=== PATIENT | female | born 1960 | race Two or more races ===

== ENCOUNTER → 2017-11-09 14:30 | Outpatient (CLI) | payer OTHER ==
[~2017-11-09] VITALS: Ht 152.4 cm; Wt 65.3 kg
[~2017-11-09 14:30] MED LIST: BACTROBAN OINT22 GM TP; FLONASE16 GM NS; GILTUSS TR TAB1 EACH PO; KETO10TA2 PO; MEDROLPACK PO; TESSALON PERLE100 MG PO; TORADOL60 MG IM; VOLTAREM 75 MG PO; ZANTAC300 MG PO; ZYRTEC10 MG PO
== END | disposition home or self-care (01) ==
LOC: PPHC 14:30
DX: M54.5 Low back pain (principal)

== ENCOUNTER 2017-11-13 07:37 | Outpatient (CLI) | payer OTHER | END 2017-11-13 07:47 | disposition home or self-care (01) | LOC: LAB 07:37 | DX: Z00.00 Encounter for general adult medical examination without abnormal findings (principal) ==

== ENCOUNTER 2017-12-14 14:26 | Outpatient (CLI) | payer OTHER | END 2017-12-14 14:34 | disposition home or self-care (01) | LOC: RAD 14:26 | DX: M54.5 Low back pain (principal); M25.569 Pain in unspecified knee ==

== ENCOUNTER → 2017-12-14 | Outpatient (CLI) | payer OTHER ==
[~2017-12-14] VITALS: Ht 152.4 cm; Wt 68.0 kg
== END | disposition home or self-care (01) ==
LOC: PPHC 13:42
DX: M54.5 Low back pain (principal)

== ENCOUNTER → 2017-12-20 | Emergency (ER) | payer OTHER ==
[~2017-12-20] VITALS: Ht 165.1 cm; Wt 68.0 kg
== END | disposition home or self-care (01) ==
LOC: ER 14:00
DX: S93.402A Sprain of unspecified ligament of left ankle, initial encounter (principal); X50.9XXA Other and unspecified overexertion or strenuous movements or postures, initial encounter; Y93.89 Activity, other specified; Y92.69 Other specified industrial and construction area as the place of occurrence of the external cause; Y99.8 Other external cause status

== ENCOUNTER 2017-12-25 11:59 | Emergency (ER) | payer OTHER ==
[~2017-12-25] VITALS: Ht 165.1 cm; Wt 67.6 kg
[2017-12-25] MEDS ORDERED: KETO10TA2 PO (13:37)
[2017-12-25] MEDS ORDERED: CYCLOBENZAPRINE10 MG PO (13:37)
== END 2017-12-25 13:50 | disposition home or self-care (01) ==
LOC: ER 11:59
DX: M25.562 Pain in left knee (principal); G89.11 Acute pain due to trauma; S80.02XS Contusion of left knee, sequela; X50.3XXS Overexertion from repetitive movements, sequela

== ENCOUNTER 2018-05-08 14:35 | Outpatient (CLI) | payer OTHER ==
[~2018-05-08 14:35] MED LIST changes: +CYCLOBENZAPRINE10 MG PO
== END 2018-05-08 14:46 | disposition home or self-care (01) ==
LOC: RAD 14:35
DX: M79.672 Pain in left foot (principal)

== ENCOUNTER 2018-05-24 05:59 | Day surgery (SDC) | payer OTHER ==
[2018-05-24] MEDS ORDERED: ALEVE220 M1 PO (15:58)
[2018-05-24] MEDS ORDERED: ULTRACET PO (15:58)
[2018-05-24] MEDS ORDERED: DUI500 PO (15:58)
== END 2018-05-24 18:10 | disposition home or self-care (01) ==
LOC: CIR.AMB 05:59
DX: S83.211A Bucket-handle tear of medial meniscus, current injury, right knee, initial encounter (principal)

== ENCOUNTER → 2018-08-31 06:41 | Outpatient (CLI) | payer OTHER ==
[~2018-08-31 06:41] MED LIST changes: +ALEVE220 M1 PO; +DUI500 PO; +ULTRACET PO
== END | disposition home or self-care (01) ==
LOC: LAB 06:41
DX: R94.6 Abnormal results of thyroid function studies (principal)

== ENCOUNTER 2018-09-21 14:11 | Outpatient (CLI) | payer OTHER | END 2018-09-21 14:16 | disposition home or self-care (01) | LOC: NUCLEAR 14:11 → TOM 14:11 → NUCLEAR 14:16 | DX: G45.8 Other transient cerebral ischemic attacks and related syndromes (principal) ==

== ENCOUNTER 2018-09-25 12:58 | Outpatient (CLI) | payer OTHER | END 2018-09-25 13:06 | disposition home or self-care (01) | LOC: LAB 12:58 | DX: J01.80 Other acute sinusitis (principal) ==

== ENCOUNTER 2018-10-02 15:25 | Outpatient (CLI) | payer OTHER | END 2018-10-02 15:28 | disposition home or self-care (01) | LOC: RAD 15:25 | DX: R07.89 Other chest pain (principal) ==

== ENCOUNTER 2018-10-10 10:11 | Outpatient (CLI) | payer OTHER | END 2018-10-10 11:02 | disposition home or self-care (01) | LOC: NUCLEAR 10:11 | DX: G45.9 Transient cerebral ischemic attack, unspecified (principal); R55 Syncope and collapse ==

== ENCOUNTER 2018-11-21 12:07 | Outpatient (CLI) | payer OTHER | END 2018-11-21 12:37 | disposition home or self-care (01) | LOC: LAB 12:07 | DX: J11.1 Influenza due to unidentified influenza virus with other respiratory manifestations (principal); J20.0 Acute bronchitis due to Mycoplasma pneumoniae ==

== ENCOUNTER 2018-11-30 14:27 | Outpatient (CLI) | payer OTHER | END 2018-11-30 14:34 | disposition home or self-care (01) | LOC: RAD 14:27 | DX: R05 Cough (principal); M54.5 Low back pain ==

== ENCOUNTER 2018-12-04 06:33 | Outpatient (CLI) | payer OTHER | END 2018-12-04 06:41 | disposition home or self-care (01) | LOC: LAB 06:33 | DX: D64.89 Other specified anemias (principal); E78.49 Other hyperlipidemia; R10.9 Unspecified abdominal pain ==

== ENCOUNTER 2018-12-04 10:16 | Outpatient (CLI) | payer OTHER | END 2018-12-04 11:00 | disposition home or self-care (01) | LOC: NUCLEAR 10:16 | DX: G45.9 Transient cerebral ischemic attack, unspecified (principal); I10 Essential (primary) hypertension ==

== ENCOUNTER 2019-02-08 14:25 | Outpatient (CLI) | payer OTHER | END 2019-02-08 15:10 | disposition home or self-care (01) | LOC: RAD 14:25 | DX: M54.2 Cervicalgia (principal); M25.511 Pain in right shoulder ==

== ENCOUNTER 2019-02-21 11:00 | Outpatient (CLI) | payer OTHER ==
[2019-02-27] MEDS ORDERED: KETO10TA2 PO (13:45)
[2019-02-27] MEDS ORDERED: CYCLOBENZAPRINE10 MG PO (13:46)
== END 2019-02-21 11:07 | disposition home or self-care (01) ==
LOC: RAD 11:00
DX: M16.12 Unilateral primary osteoarthritis, left hip (principal)

== ENCOUNTER 2019-03-05 13:25 | Outpatient (CLI) | payer OTHER | END 2019-03-05 13:38 | disposition home or self-care (01) | LOC: SONOGRAMA 13:25 → MAMO-SONO 13:45 | DX: M75.31 Calcific tendinitis of right shoulder (principal) ==

== ENCOUNTER → 2019-06-17 10:34 | Outpatient (CLI) | payer OTHER | END | disposition home or self-care (01) | LOC: LAB 10:34 | DX: I10 Essential (primary) hypertension (principal); E03.8 Other specified hypothyroidism; R80.8 Other proteinuria ==

== ENCOUNTER 2019-12-29 08:41 | Emergency (ER) | payer OTHER ==
[~2019-12-29] VITALS: Ht 165.1 cm; Wt 68.9 kg
== END 2019-12-29 10:21 | disposition home or self-care (01) ==
LOC: ER 08:41
DX: S43.492A Other sprain of left shoulder joint, initial encounter (principal); X50.0XXA Overexertion from strenuous movement or load, initial encounter; Y93.89 Activity, other specified; Y92.89 Other specified places as the place of occurrence of the external cause; Y99.8 Other external cause status

== ENCOUNTER 2020-03-11 11:30 | Outpatient (CLI) | payer OTHER | END 2020-03-11 11:31 | disposition home or self-care (01) | LOC: RAD 11:30 | DX: M25.522 Pain in left elbow (principal) ==

== ENCOUNTER 2020-05-05 07:22 | Outpatient (CLI) | payer OTHER ==
[~2020-05-05 07:22] MED LIST changes: +DICLOFENAC POTA50 MG PO; +NORFLEX100MG PO
== END 2020-05-05 08:44 | disposition home or self-care (01) ==
LOC: MRI 07:22
PROVIDERS: ATTEND Physical Medicine & Rehabilitation
DX: M54.2 Cervicalgia (principal)
CPT/HCPCS: 72141

== ENCOUNTER 2020-07-06 06:21 | Outpatient (CLI) | payer OTHER ==
[~2020-07-06 06:21] MED LIST changes: +EC-NAPROSYN500 MG PO; +ZANAFLEX2 MG PO
== END 2020-07-06 06:24 | disposition home or self-care (01) ==
LOC: LAB 06:21
PROVIDERS: ATTEND Internal Medicine
DX: D64.89 Other specified anemias (principal); R10.84 Generalized abdominal pain; E78.49 Other hyperlipidemia; R07.89 Other chest pain

== ENCOUNTER 2020-07-14 09:52 | Emergency (ER) | payer OTHER ==
[~2020-07-14] VITALS: Ht 165.1 cm; Wt 68.0 kg
[2020-07-14] MEDS ORDERED: SULINDAC150 MG (10:03)
[2020-07-14] MEDS ORDERED: KETO10TA2 PO (14:10)
[2020-07-14] MEDS ORDERED: ORPHENADRINE C100 MG PO (14:10)
== END 2020-07-14 14:16 | disposition home or self-care (01) ==
LOC: ER 09:52
DX: M50.31 Other cervical disc degeneration, high cervical region (principal); M43.12 Spondylolisthesis, cervical region

== ENCOUNTER 2020-07-24 18:10 | Outpatient (CLI) | payer OTHER ==
[~2020-07-24 18:10] MED LIST changes: +ORPHENADRINE C100 MG PO; +SULINDAC150 MG
== END 2020-07-24 18:11 | disposition home or self-care (01) ==
LOC: PPH VACUNA 18:10
DX: Z23 Encounter for immunization (principal)

== ENCOUNTER 2020-08-03 06:36 | Outpatient (CLI) | payer OTHER | END 2020-08-03 15:00 | disposition home or self-care (01) | LOC: LAB 06:36 | PROVIDERS: ATTEND Obstetrics & Gynecology | DX: E03.8 Other specified hypothyroidism (principal); I10 Essential (primary) hypertension; Z00.00 Encounter for general adult medical examination without abnormal findings; E78.00 Pure hypercholesterolemia, unspecified; N39.0 Urinary tract infection, site not specified; Z11.4 Encounter for screening for human immunodeficiency virus [HIV]; Z12.11 Encounter for screening for malignant neoplasm of colon; E55.9 Vitamin D deficiency, unspecified; Z21 Asymptomatic human immunodeficiency virus [HIV] infection status; R79.89 Other specified abnormal findings of blood chemistry ==

== ENCOUNTER 2020-08-19 12:44 | Outpatient (CLI) | payer OTHER | END 2020-08-19 12:53 | disposition home or self-care (01) | LOC: MAMO-SONO 12:44 | PROVIDERS: ATTEND Obstetrics & Gynecology | DX: E03.8 Other specified hypothyroidism (principal); N64.59 Other signs and symptoms in breast; N64.89 Other specified disorders of breast; N63.10 Unspecified lump in the right breast, unspecified quadrant; N63.20 Unspecified lump in the left breast, unspecified quadrant ==

== ENCOUNTER 2020-08-19 14:31 | Outpatient (CLI) | payer OTHER | END 2020-08-19 14:33 | disposition home or self-care (01) | LOC: NUCLEAR 14:31 | PROVIDERS: ATTEND Obstetrics & Gynecology | DX: M81.0 Age-related osteoporosis without current pathological fracture (principal); Z13.820 Encounter for screening for osteoporosis ==

== ENCOUNTER 2022-02-24 10:02 | Emergency (ER) | payer OTHER ==
[~2022-02-24] VITALS: Ht 165.1 cm; Wt 69.9 kg
[2022-02-24] MEDS ORDERED: ECOTRIN81 MG (10:12)
== END 2022-02-24 13:18 | disposition home or self-care (01) ==
LOC: ER 10:02
DX: M54.2 Cervicalgia (principal)

== ENCOUNTER 2022-07-06 06:13 | Outpatient (CLI) | payer OTHER ==
[~2022-07-06 06:13] MED LIST changes: +ECOTRIN81 MG
== END 2022-07-06 06:15 | disposition home or self-care (01) ==
LOC: LAB 06:13
DX: R10.13 Epigastric pain (principal); N92.5 Other specified irregular menstruation; R10.2 Pelvic and perineal pain; N83.209 Unspecified ovarian cyst, unspecified side; B18.2 Chronic viral hepatitis C; D50.9 Iron deficiency anemia, unspecified; N18.1 Chronic kidney disease, stage 1

== ENCOUNTER 2022-11-16 14:16 | Outpatient (CLI) | payer OTHER | END 2022-11-16 14:26 | disposition home or self-care (01) | LOC: PPH VACUNA 14:16 | PROVIDERS: ATTEND Emergency Medicine Pediatric Emergency Medicine | DX: Z23 Encounter for immunization (principal) ==

== ENCOUNTER 2023-07-31 08:31 | Outpatient (CLI) | payer OTHER | END 2023-07-31 09:48 | disposition home or self-care (01) | LOC: SONOGRAMA 08:31 | PROVIDERS: ATTEND Pathology Anatomic Pathology & Clinical Pathology | DX: D34 Benign neoplasm of thyroid gland (principal); E04.9 Nontoxic goiter, unspecified; E06.5 Other chronic thyroiditis ==

== ENCOUNTER 2024-09-03 10:23 | Outpatient (CLI) | payer OTHER | END 2024-09-03 10:24 | disposition home or self-care (01) | LOC: NUCLEAR 10:23 | DX: I82.401 Acute embolism and thrombosis of unspecified deep veins of right lower extremity (principal); I87.2 Venous insufficiency (chronic) (peripheral) ==

== ENCOUNTER 2024-09-18 11:54 | Outpatient (CLI) | payer OTHER | END 2024-09-18 11:55 | disposition home or self-care (01) | LOC: NUCLEAR 11:54 | DX: M81.0 Age-related osteoporosis without current pathological fracture (principal); M85.80 Other specified disorders of bone density and structure, unspecified site ==